=== PATIENT | female | born 1935 | race Two or more races ===

== ENCOUNTER 2018-08-06 15:13 | Emergency (ER) | payer OTHER ==
[~2018-08-06] VITALS: Ht 162.6 cm; Wt 77.1 kg
== END 2018-08-06 20:58 | disposition home or self-care (01) ==
LOC: ER 15:13
DX: M51.06 Intervertebral disc disorders with myelopathy, lumbar region (principal)

== ENCOUNTER 2019-04-12 15:50 | Emergency (ER) | payer OTHER ==
[~2019-04-12] VITALS: Ht 160 cm; Wt 79.4 kg
== END 2019-04-12 22:06 | disposition home or self-care (01) ==
LOC: ER 15:50 → CPU-OBS 16:16 → ER 22:06
DX: I16.0 Hypertensive urgency (principal); I10 Essential (primary) hypertension; R07.89 Other chest pain

== ENCOUNTER 2019-06-22 09:49 | Emergency (ER) | payer OTHER ==
[~2019-06-22] VITALS: Ht 160 cm; Wt 77.1 kg
[2019-06-22] MEDS ORDERED: ASPIR 8181 MG PO (10:07)
[2019-06-22] MEDS ORDERED: LISINOPRIL10 MG PO (10:08)
== END 2019-06-22 10:50 | disposition home or self-care (01) ==
LOC: ER 09:49
DX: S70.01XA Contusion of right hip, initial encounter (principal); W18.09XA Striking against other object with subsequent fall, initial encounter; Y93.89 Activity, other specified; Y92.520 Airport as the place of occurrence of the external cause; Y99.8 Other external cause status

== ENCOUNTER 2020-02-29 14:45 | Emergency (ER) | payer OTHER ==
[~2020-02-29] VITALS: Ht 160 cm; Wt 71.7 kg
[~2020-02-29 14:45] MED LIST: ASPIR 8181 MG PO; LISINOPRIL10 MG PO
== END 2020-02-29 19:17 | disposition home or self-care (01) ==
LOC: ER 14:45
DX: S70.02XA Contusion of left hip, initial encounter (principal); S70.01XA Contusion of right hip, initial encounter; S50.01XA Contusion of right elbow, initial encounter; S30.0XXA Contusion of lower back and pelvis, initial encounter; W18.39XA Other fall on same level, initial encounter; Y93.89 Activity, other specified; Y92.098 Other place in other non-institutional residence as the place of occurrence of the external cause; Y99.8 Other external cause status

== ENCOUNTER 2021-02-21 12:17 | Inpatient (IN) | payer OTHER ==
[~2021-02-21] VITALS: Ht 162.6 cm; Wt 64.4 kg
--- NOTE | 2021-02-21 13:08 | NUR ---
PACIENTE ALERTA Y ORIENTADA EN [facility] [facility]. PACIENTE LLEGA EN AMBULANCIA POR RULE OUT DE COVID POSITIVO. SE UBICA A PACIENTE EN SECCION K. [facility] MUESTR[facility] DE LABORATORIO MARTINE ORDEN MEDICA Y SIGUIENDO TECNICAS ASEPTICAS. SE ORIENTA A PACIENTE SOBRE TRATAMIENTO. PACIENTE REFIERE ENTENDER. SE NOTIFICAN GASES ARTERIALES DE PACIENTE. SE ESPERA POR RESULTADOS DE LABORATORIOS Y ESTUDIOS PENDIENTES.
== END 2021-03-19 19:30 | disposition home or self-care (01) | DRG 329 ==
LOC: ER 12:17 → SURG 20:11
PROVIDERS: ADMIT Surgery; ATTEND Surgery
PROC: 0D1L4Z4 Bypass Transverse Colon to Cutaneous, Percutaneous Endoscopic Approach (ICD-10-PCS; principal; 2021-02-22 14:00)
PROC: 02HV33Z Insertion of Infusion Device into Superior Vena Cava, Percutaneous Approach (ICD-10-PCS; 2021-02-24)
PROC: 30233N1 Transfusion of Nonautologous Red Blood Cells into Peripheral Vein, Percutaneous Approach (ICD-10-PCS; 2021-03-03)
PROC: 0W9G30Z Drainage of Peritoneal Cavity with Drainage Device, Percutaneous Approach (ICD-10-PCS; 2021-03-06)
DX: K63.1 Perforation of intestine (nontraumatic) (principal); K65.1 Peritoneal abscess; B37.49 Other urogenital candidiasis; Z16.12 Extended spectrum beta lactamase (ESBL) resistance; N17.9 Acute kidney failure, unspecified; C18.7 Malignant neoplasm of sigmoid colon; C78.02 Secondary malignant neoplasm of left lung; C78.01 Secondary malignant neoplasm of right lung; E86.0 Dehydration; B96.29 Other Escherichia coli [E. coli] as the cause of diseases classified elsewhere; I13.10 Hypertensive heart and chronic kidney disease without heart failure, with stage 1 through stage 4 chronic kidney disease, or unspecified chronic kidney disease; N18.9 Chronic kidney disease, unspecified; Z20.822 Contact with and (suspected) exposure to COVID-19; D50.0 Iron deficiency anemia secondary to blood loss (chronic)

== ENCOUNTER 2021-03-26 08:18 | Emergency (ER) | payer OTHER ==
[~2021-03-26] VITALS: Ht 160 cm; Wt 74.8 kg
== END 2021-03-26 09:36 | disposition home or self-care (01) ==
LOC: ER 08:18
DX: K94.03 Colostomy malfunction (principal); K94.13 Enterostomy malfunction

== ENCOUNTER 2021-03-31 12:37 | Emergency (ER) | payer OTHER ==
[~2021-03-31] VITALS: Ht 160 cm; Wt 68.0 kg
== END 2021-03-31 18:25 | disposition home or self-care (01) ==
LOC: ER 12:37
DX: K94.03 Colostomy malfunction (principal)

== ENCOUNTER → 2021-04-05 | Emergency (ER) | payer OTHER ==
[~2021-04-05] VITALS: Ht 160 cm; Wt 69.4 kg
== END | disposition home or self-care (01) ==
LOC: ER 13:28
DX: Z43.3 Encounter for attention to colostomy (principal)

== ENCOUNTER 2022-07-14 10:07 | Outpatient (CLI) | payer OTHER | END 2022-07-14 11:00 | disposition home or self-care (01) | LOC: RAD 10:07 | DX: M19.012 Primary osteoarthritis, left shoulder (principal); M75.102 Unspecified rotator cuff tear or rupture of left shoulder, not specified as traumatic ==